=== PATIENT | male | born 2000 | race African-American/Black ===

== ENCOUNTER 2020-02-25 18:13 | Emergency (ER) | payer OTHER ==
[~2020-02-25] VITALS: Ht 170.2 cm; Wt 190.5 kg
[2020-02-25] MEDS ORDERED: IBU600 MG PO (21:07)
[2020-02-25 21:15] VITALS: BP 181/98
== END 2020-02-25 21:15 | disposition home or self-care (01) ==
LOC: M.ERS 18:13
DX: S63.602A Unspecified sprain of left thumb, initial encounter (principal); F17.210 Nicotine dependence, cigarettes, uncomplicated; J45.909 Unspecified asthma, uncomplicated; E66.01 Morbid (severe) obesity due to excess calories; X50.1XXA Overexertion from prolonged static or awkward postures, initial encounter; Y93.67 Activity, basketball; Y92.89 Other specified places as the place of occurrence of the external cause; Y99.9 Unspecified external cause status